=== PATIENT | male | born 1955 | race Caucasian/White ===

== ENCOUNTER 2018-11-07 13:27 | Outpatient (CLI) | payer BC ==
--- NOTE | 2018-11-07 19:16 | CT ---
CT NECK SOFT TISSUES WITH AND WITHOUT CONTRAST: 11/07/2018 HISTORY/TECHNIQUE: A spiral CT of the neck is performed for evaluation of this patient with a vocal cord lesion. Axial slices were acquired pre and post IV contrast. Coronal and sagittal reconstructions were then done o n the post contrast images. FINDINGS: There is a subtle asymmetry in the right vocal fold, best seen on slice 150 of the post contrast imag e. There is a slight thickening in this location. The left side appears normal. The airway is patent throughout. There is no excess of nodes in the deep cervical chains or elsewher e. All nodes seen are normal in size. No necrotic nodes are detected. No neck masses are seen. Th ere are no areas of pathological enhancement. I would note that it appears there may be some narrowi ng of the right internal carotid artery, at its origin. This would be better assessed with Doppler u ltrasound. There are some extensive degenerative changes in the patient's cervical spine. 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 There is a small disk osteophyte complex at C4-C5 that mi ldly effaces the thecal sac. At C5-C6, there is a prominent left posterior central osteophyte that n arrows the neural foramen and impinges upon the left lateral recess. At C6-C7, a large amount of ost eophyte, posteriorly, causes narrowing of the central canal to about an 8 mm AP diameter. IMPRESSION: 1. Asymmetry of the right vocal fold. Presumably, this is the site of the lesion. There is no abno rmal enhancement here. 2. No evidence of significant cervical adenopathy. 3. Possible narrowing at the origin of the right internal carotid artery. An elective Doppler ultra sound to confirm or deny the finding would be prudent. 4. Extensive cervical spondylosis, as noted above, with central canal stenosis at C6-C7, left latera l recess stenosis at C5-C6, and mild effacement of the thecal sac at C4-C5. POS: HOME
== END 2018-11-07 13:28 | disposition home or self-care (01) ==
LOC: BURCT 13:27
PROVIDERS: ATTEND Otolaryngology Plastic Surgery within the Head & Neck
DX: J38.3 Other diseases of vocal cords (principal); C44.92 Squamous cell carcinoma of skin, unspecified; M47.812 Spondylosis without myelopathy or radiculopathy, cervical region; M48.02 Spinal stenosis, cervical region
CPT/HCPCS: 36415; 70491; 82565